=== PATIENT | female | born 1990 | race Two or more races ===

== ENCOUNTER 2019-02-14 23:28 | Emergency (ER) | payer OTHER ==
[~2019-02-14] VITALS: Ht 175.3 cm; Wt 90.7 kg
--- NOTE | 2019-02-15 00:08 | NUR ---
"TREMORS, GEN WEAKNESS, LOWER EXT NUMBNESS, NAUSEA, LOWER BACK PAIN 12/23PS" PT AAOX4, -SOB, NAD NOTED, PENDING MD HART
[2019-02-15 00:46] LABS: APPEARANCE,URINE Clear (CLEAR); BILIRUBIN,URINE SMALL (NEGATIVE); BLOOD, URINE Negative Ery/uL (NEGATIVE); COLOR,URINE Yellow (YELLOW); KETONES,URINE Trace (NEGATIVE); LEUKOCYTE ESTERASE ,URINE Trace (NEGATIVE); NITRITE, URINE Negative (NEGATIVE); PROTEIN,URINE Negative (NEGATIVE); UGLUCOSE Negative (NEGATIVE); UROBILINOGEN,URINE 0.2 EU/dL (0.2)
[2019-02-15] MEDS ORDERED: KETOROLAC TROMETHAMINE INJ 60 MG/2 ML VIAL IM ONE ×2 (01:00→01:02)
[2019-02-15] MEDS ORDERED: LORAZEPAM INJ 2 MG/ML VIAL IM ONE (01:00)
[2019-02-15] MEDS ORDERED: LORAZEPAM INJ 2 MG/ML VIAL ONE (01:02)
--- NOTE | 2019-02-15 01:39 | NUR ---
Patient discharged to home in stable condition. Written and verbal after care instructions given. Patient verbalizes understanding of instruction.
[2019-02-15 01:41] VITALS: BP 131/70
[2019-02-15 03:54] LABS: BACTERIA,URINE Few /HPF (None Seen); SQUAMOUS EPITHELIAL CELL,UR Moderate /HPF (None Seen)
== END 2019-02-15 01:53 | disposition home or self-care (01) ==
LOC: ER 23:28
DX: M54.41 Lumbago with sciatica, right side (principal); M54.42 Lumbago with sciatica, left side; F41.9 Anxiety disorder, unspecified; R56.9 Unspecified convulsions; K21.9 Gastro-esophageal reflux disease without esophagitis
CPT/HCPCS: 72100; 81001; 84703; 87086; 96372 ×2; 99284; J1885; J2060; 81000-TC